=== PATIENT | female | born 1950 | race Caucasian/White ===

== ENCOUNTER → 2020-01-11 05:27 | Outpatient (CLI) | payer MEDICARE, OTHER, SELFPAY ==
[2019-12-30 14:24] VITALS: BMI 25.3
--- NOTE | 2020-01-11 05:27 | ECHOCS_ITS ---
Reason For Study: Arrhythmia Procedure This was a 2D Doppler, Color Flow transthoracic echocardiogram. Contrast injection was performed. Exam performed in department. Left Ventricle Normal LV size. The estimated ejection fraction is 30 %. Stage 1 diastolic dysfunction. There is moderate to severe global hypokinesis of the left ventricle. Right Ventricle Normal RV size. Normal systolic function. Atria Normal left atrium. Normal right atrium. Mitral Valve Normal mitral valve. Mild (1+) eccentric mitral valve insufficiency. Tricuspid Valve Normal tricuspid valve. Mild (1+) tricuspid valve insufficiency. Pulmonary artery systolic pressure is 36 mmHg. Aortic Valve Normal aortic valve. Trisinus/trileaflet aortic valve. Pulmonic Valve Normal pulmonic valve. Great Vessels Normal aortic root. The pulmonary artery is normal size. Normal inferior vena cava. Pericardium/Pleural No pericardial effusion. Medication Diluted definity 2ml given slow IV push to enhance endocardial definition. MMode/2D Measurements & Calculations LVIDd: 5.2 cm IVSd: 1.3 cm LA dimension: 3.4 cm LVIDs: 4.5 cm LVPWd: 1.1 cm FS: 14.0 % LAV(MOD-bp): 55.9 ml LVAd ap4: 38.8 cm2 SV(MOD-sp4): 43.6 ml LAV(MOD-bp) Indexed: 35.1 ml/m2 EDV(MOD-sp4): 157.2 ml LAV(MOD-sp2): 57.7 ml EDV(sp4-el): 158.8 ml LAV(MOD-sp4): 53.6 ml LVAs ap4: 30.9 cm2 ESV(MOD-sp4): 113.6 ml ESV(sp4-el): 116.3 ml EF(MOD-sp4): 27.7 % EF(sp4-el): 26.7 % SV(sp4-el): 42.4 ml LA A4 area: 18.1 cm2 RA A4 area: 9.9 cm2 Time Measurements MV dec time: 0.15 sec Doppler Measurements & Calculations MV E max sanford: 48.3 cm/sec Ao V2 max: 110.0 cm/sec LV V1 max: 76.6 cm/sec MV A max sanford: 92.9 cm/sec Ao max P.8 mmHg LV V1 max P.3 mmHg MV E/A: 0.52 PA V2 max: 69.5 cm/sec TR max sanford: 285.2 cm/sec TR max P.5 mmHg Interpretation Summary Normal LV size. The estimated ejection fraction is 30 %. Stage 1 diastolic dysfunction. Mild (1+) eccentric mitral valve insufficiency. Mild (1+) tricuspid valve insufficiency. Pulmonary artery systolic pressure is 36 mmHg. Contrast injection was performed. Ordering Physician: Jesus Melton Referring Physician: Cade Colon Performed By: José Miguel Stokes RCS
--- NOTE | 2020-01-11 09:52 | STRESSREP ---
Stress Test Report Pharmacologic myocardial perfusion stress test. 69-year-old lady with a history of abnormal EKG. Stress protocol: Resting EKG demonstrates normal sinus rhythm with a rate of 74 bpm and an incomplete left bundle branch block and T wave inversions noted in leads II, III and aVF V4 V5 and V6. 0.4 mg of regadenoson was infused per usual protocol followed by Intravenous saline flush injection continuous EKG monitoring was performed. The maximum heart rate was 96 bpm which was 62% of maximum predicted heart rate the maximum workload was 1 metabolic equivalent. At rest there were no ST or T wave changes noted to suggest abnormal flow reserve at peak infusion nonspecific ST-T wave changes were noted. The ST changes were noted which was suggestive of an incomplete left bundle branch block. Myocardial perfusion protocol. 11.8 mCi of technetium 99m sestamibi was injected at rest. 0.4 mg of regadenoson was infused per usual protocol. At peak infusion 32.1 mCi of technetium 99m sestamibi was injected stress images obtained stress and rest images were reconstructed and compared in the short axis vertical long horizontal long axis. Gated images were also obtained Perfusion SPECT analysis: Review of the stress images demonstrate a mildly dilated cardiac silhouette size. On the stress images the anterior septal wall to the apex appears to have reduced perfusion. The resting images demonstrate an improvement in perfusion suggesting anterior septal to apical ischemia. A previous infarct was not present. Gated SPECT analysis: The gated ejection fraction is noted to be 30%. Conclusion: 1. Cardiomyopathy. 2. Incomplete left bundle branch block. 3. Anterior septal to apical ischemia.
== END ==
PROVIDERS: PCP Family Medicine; Referring Provider Internal Medicine Cardiovascular Disease; Visit Provider Internal Medicine Cardiovascular Disease
DX: R94.31 Abnormal electrocardiogram [ECG] [EKG] (principal)
CPT/HCPCS: 78452; 93017; 93306; A9500; Q9957; A4216; C8929; J2785

== ENCOUNTER 2020-01-14 10:05 | Day surgery (SDC) | payer MEDICARE, OTHER, SELFPAY ==
[2019-12-30 14:24] VITALS: BMI 25.3
[2020-01-13 08:49] VITALS: BMI 25.3
--- NOTE | 2020-01-14 12:20 | CL.D_ITS ---
Patient Name: RENETTA WAITE Study Date: 01/14/2020 Performing: Jesus Melton MD Ht: 61.02 inches 155 cm : 1950 Wt: 134.48 lbs 61 kg Age: 69 Gender: female BSA: 1.6 PROCEDURE(S) PERFORMED BM27-DAO/COR/LV CLINICAL PROFILE AND INDICATIONS Heart Failure: None Stress/Imaging Date: 01/02/2020 CONCLUSIONS Normal coronary arteries Cardiomyopathy: Non-ischemic RECOMMENDATIONS Medical therapy Will startACE inhibitor and proceed with knee surgery DESCRIPTION OF PROCEDURE The patient arrived to the procedure lab. The risks and benefits of the procedure as well as a full d escription of our services here and current unavailability of surgical backup were fully explained to the patient and/or their significant other prior to the catheterization. The Timeout was completed, verifying the correct patient and procedure. The patient's procedural site was prepped and draped in the usual fashion. Local anesthetic was given subcutaneously to right radial region with Lidocaine 2% . Using a modified Seldinger technique, arterial access was obtained via the right radial artery, a 6 Fr sheath was inserted. Left Coronary Artery selective angiography was performed in multiple views u sing a 5 Fr. 4.0 [place] catheter. Right Coronary Artery selective angiography was then performed in mu ltiple views using a 5 Fr. 4.0 [place] catheter. Left Ventriculography was performed in V[place] projection using a 5 Fr. [place] catheter. LV to AO pullback pressures were then recorded.The arterial sheath was pulled and a TR Band was applied for hemostasis w/ 12ml air CORONARY ANGIOGRAPHY DOMINANCE: Right Dominant LEFT HEART ASSESSMENT Left Ventricular Ejection Fraction: by LV Gram 35 % Global Hypokinesis - Moderate Depressed Left Ventricular systolic function LEFT MAIN: Angiographically normal LEFT ANTERIOR DESCENDING ARTERY: Angiographically normal CIRCUMFLEX ARTERY: Angiographically normal RIGHT CORONARY ARTERY: Angiographically normal COMPLICATIONS No Complications PROCEDURE MEDICATIONS Versed 1 mg IV Fentanyl 50 mcg IV Versed 1 mg IV Baby Aspirin (81mg) 1 Tabs PO @ 01/14/2020 10:44:25 SUMMARY OF HEMODYNAMIC DATA Time AIR REST ECG 10:45:49 AO 143/82 (108) SA 11:21:39 LV 136/14, 22 11:46:10 LV 137/17, 24 11:46:16 LV 135/14, 21 11:47:22 LVp 134/18, 24 11:47:27 AO 143/85 (111) 11:47:32 Signed By Jesus Melton MD On 01/14/2020 12:18:52 Jesus Melton MD
== END 2020-01-14 13:25 | disposition home or self-care (01) ==
LOC: CLSP 10:05
PROVIDERS: PCP Family Medicine; Referring Provider Internal Medicine Cardiovascular Disease; Visit Provider Internal Medicine Cardiovascular Disease
DX: Z01.810 Encounter for preprocedural cardiovascular examination (principal); R94.31 Abnormal electrocardiogram [ECG] [EKG]; M19.90 Unspecified osteoarthritis, unspecified site; I44.7 Left bundle-branch block, unspecified; G20 Parkinson's disease; E78.5 Hyperlipidemia, unspecified; G47.33 Obstructive sleep apnea (adult) (pediatric); M81.0 Age-related osteoporosis without current pathological fracture; F32.9 Major depressive disorder, single episode, unspecified; Z79.82 Long term (current) use of aspirin; Z79.899 Other long term (current) drug therapy
CPT/HCPCS: 93458; 99152; 99153; J7040; Q9967; C1769; C1894

== ENCOUNTER → 2020-11-08 10:48 | Outpatient (CLI) | payer MEDICARE, OTHER, SELFPAY ==
[2020-10-31 10:39] VITALS: BMI 23.0
--- NOTE | 2020-11-08 10:51 | ECHOD_ITS ---
Reason For Study: CHF Procedure This was a 2D Doppler, Color Flow transthoracic echocardiogram. Exam performed in department. Left Ventricle Normal LV size. The estimated ejection fraction is 35 %. Stage 1 diastolic dysfunction. There is moderate global hypokinesis of the left ventricle. Right Ventricle Normal RV size. Mitral Valve Mild mitral valve prolapse. Tricuspid Valve Normal tricuspid valve. Mild (1+) tricuspid valve insufficiency. Pulmonary artery systolic pressure is 28 mmHg. Pericardium/Pleural No pericardial effusion. MMode/2D Measurements & Calculations LVIDd: 5.4 cm IVSd: 1.0 cm Ao root diam: 3.2 cm LVIDs: 4.3 cm LVPWd: 1.0 cm RVDd: 2.5 cm FS: 18.9 % LAV(MOD-bp): 35.2 ml LVAd ap4: 25.5 cm2 LVAd ap2: 28.7 cm2 LAV(MOD-bp) Indexed: 23.3 ml/m2 LVLd ap4: 7.1 cm LVLd ap2: 7.6 cm LAV(MOD-sp2): 34.2 ml EDV(MOD-sp4): 79.2 ml EDV(MOD-sp2): 90.8 ml LAV(MOD-sp4): 33.3 ml EDV(sp4-el): 77.5 ml EDV(sp2-el): 91.7 ml LVAs ap4: 19.5 cm2 LVAs ap2: 19.6 cm2 LVLs ap4: 6.2 cm LVLs ap2: 6.8 cm ESV(MOD-sp4): 52.0 ml ESV(MOD-sp2): 50.8 ml ESV(sp4-el): 51.9 ml ESV(sp2-el): 48.4 ml EF(MOD-sp4): 34.4 % EF(MOD-sp2): 44.1 % EF(sp4-el): 33.0 % SV(MOD-sp4): 27.2 ml SV(MOD-sp2): 40.0 ml SV(sp4-el): 25.6 ml LA A4 area: 14.1 cm2 LA dimension(2D): 3.8 cm RA A4 area: 12.3 cm2 Time Measurements MV dec time: 0.29 sec Doppler Measurements & Calculations MV E max henrik: 48.6 cm/sec Lat Peak E' Henrik: 5.4 cm/sec Med Peak E' Henrik: 3.8 cm/sec MV A max henrik: 78.4 cm/sec E/E' lat: 9.1 E/E' med: 12.8 MV E/A: 0.62 Ao V2 max: 102.0 cm/sec LV V1 max: 67.7 cm/sec PA V2 max: 78.6 cm/sec Ao max P.2 mmHg LV V1 max P.8 mmHg TR max henrik: 242.0 cm/sec TR max P.4 mmHg ECHO/Echo Complete Interpretation Summary Normal LV size. The estimated ejection fraction is 35 %. There is moderate global hypokinesis of the left ventricle. Stage 1 diastolic dysfunction. Mild mitral valve prolapse. Compared to previous study, the left ventricular systolic function has improved .. Ordering Physician: Lea Lala Referring Physician: Cade Colon Performed By: Medina Pena, JAQUELINE, RVT
== END ==
PROVIDERS: PCP Family Medicine; Referring Provider Physician Assistant Medical; Visit Provider Physician Assistant Medical
DX: I42.8 Other cardiomyopathies (principal); I50.9 Heart failure, unspecified
CPT/HCPCS: 93306

== ENCOUNTER → 2023-12-03 | Outpatient (CLI) | payer MEDICARE, OTHER, SELFPAY ==
[2023-12-03 10:02] LABS: Absolute Lymphocyte Count 2.07 X10^3/uL (0.83-4.51); Absolute Neutrophil Count 2.8 X10^3/uL (2.0-7.7); Basophil# 0.04 X10^3/uL; Basophil% 0.7 % (0-1); Eosinophil# 0.06 X10^3/uL; Eosinophils% 1.1 % (0-5); Hematocrit 31.6 % (37-47); Hemoglobin 9.9 g/dL (12.0-15.0); Lymphocyte # 2.07 X10^3/ul (0.83-4.51); Lymphocyte % 38.4 % (19-41); Mean Corp Hgb Conc 31.3 g/dL (32-36); Mean Corpuscular Hgb 30.1 pg (27.0-32.0); Mean Platelet Vol. 10.2 fl (6.2-12.0); Monocyte# 0.44 X10^3/uL; Monocyte% 8.2 % (0-10); NRBC Flagged by Analyzer 0 % (0-5); Neutrophil # 2.77 X10^3/uL (2.7-7.7); Neutrophil % 51.4 % (47-70); Platelet Count 234 K/mm3 (150-450); RBC Distribution Width CV 16.3 % (11.6-14.6); RBC Distribution Width SD 51.6 fl (35.1-43.9); Red Blood Count 3.29 M/mm3 (4.2-5.4); White Blood Count 5.4 K/mm3 (4.4-11.0)
[2023-12-03 10:10] LABS: ALB/GLOB Ratio 1.2 RATIO (0.9-2.4); AST(SGOT) 11 U/L (15-37); Alanine Aminotransfer ALT/SGPT < 6 U/L (13-56); Albumin, Serum 3.4 g/dL (3.2-5.0); Alkaline Phosphatase 68 U/L (45-117); Anion Gap 5 (5-15); BUN 29 mg/dL (7-18); BUN/Creat Ratio 53.8 RATIO (10-20); Calcium,Total 8.9 mg/dL (8.5-10.1); Chloride 108 mmol/L (98-107); Creatinine, Serum 0.54 mg/dL (0.55-1.02); EST Glomerular Filtration Rate 118 mL/min (>60); Est Glom Filt Rate - Afr Amer 143 mL/min (>60); Globulin 2.8 g/dL (2.2-4.2); Glucose 105 mg/dL (74-106); Potassium 3.7 mmol/L (3.5-5.1); Protein, Total 6.2 g/dL (6.4-8.2); Sodium Level 141 mmol/L (136-145)
== END | disposition home or self-care (01) ==
LOC: LAB 09:09
PROVIDERS: PCP Internal Medicine; Visit Provider Physician Assistant Medical
DX: I42.8 Other cardiomyopathies (principal); R53.83 Other fatigue; R53.1 Weakness; I10 Essential (primary) hypertension; E78.5 Hyperlipidemia, unspecified; I44.7 Left bundle-branch block, unspecified
CPT/HCPCS: 36415; 80053; 83735; 85025

== ENCOUNTER → 2024-10-15 | Outpatient (CLI) | payer MEDICARE, OTHER, SELFPAY ==
--- NOTE | 2024-10-15 09:37 | ECHOD_ITS ---
Reason For Study Reason For Study: CARDIOMYOPATHY Procedure This was a 2D Doppler, Color Flow transthoracic echocardiogram. The study was technically difficult. Due to constant motion (PARKINSON'S DZ). Exam performed in department. Left Ventricle Normal LV size. The left ventricular ejection fraction is 40 %. No regional wall motion abnormalities noted. Right Ventricle Normal RV size. Normal systolic function. Atria Normal left atrium. Normal right atrium. Mitral Valve Bileaflet diffuse mitral valve thickening. Tricuspid Valve Normal tricuspid valve. Mild (1+) tricuspid valve insufficiency. Pulmonary artery systolic pressure is 20 mmHg. Aortic Valve Trisinus/trileaflet aortic valve. Mild focal aortic valve thickening. Pulmonic Valve Normal pulmonic valve. Great Vessels Normal aortic root. The pulmonary artery is normal size. Inferior vena cava collapse with respiration. Pericardium/Pleural No pericardial effusion. MMode/2D Measurements & Calculations LVIDd: 4.9 cm IVSd: 0.75 cm LAV(MOD- bp): 58.2 ml LVIDs: 3.7 cm LVPWd: 0.99 cm LAV(MOD- bp) Indexed: 40.2 ml/m2 RVDd: 2.5 cm FS: 25.6 % LAV(MOD- sp2): 56.6 ml LAV(MOD- sp4): 50.6 ml SV(MOD- sp4): 32.3 ml LVAd ap4: 28.2 cm2 LVAd ap2: 21.3 cm2 LVLd ap4: 7.6 cm LVLd ap2: 7.0 cm SI(MOD- sp4): 22.3 ml/m2 EDV(MOD-sp4): 90.7 ml EDV(MOD-sp2): 56.9 ml EDV(sp4-el): 89.6 ml EDV(sp2-el): 55.5 ml LVAs ap4: 21.2 cm2 LVAs ap2: 15.8 cm2 LVLs ap4: 6.6 cm LVLs ap2: 6.0 cm ESV(MOD-sp4): 58.4 ml ESV(MOD-sp2): 36.8 ml ESV(sp4-el): 58.3 ml ESV(sp2-el): 35.3 ml EF(MOD-sp4): 35.6 % EF(MOD-sp2): 35.2 % EF(sp4-el): 35.0 % SV(MOD-sp2): 20.0 ml SV(sp4-el): 31.4 ml LA A4 area: 16.4 cm2 SI(MOD-sp2): 13.8 ml/m2 TAPSE: 1.8 cm RA A4 area: 11.7 cm2 Time Measurements MV dec time: 0.23 sec Doppler Measurements & Calculations MV E max henrik: 50.7 cm/sec Lat Peak E' Henrik: 4.8 cm/sec Med Peak E' Henrik: 5.1 cm/sec MV A max henrik: 83.5 cm/sec E/E' lat: 10.5 E/E' med: 10.0 MV E/A: 0.61 MV V2 max: 94.4 cm/sec MV P1/2t max henrik: 51.8 cm/sec Ao V2 max: 110.6 cm/sec MV max P.6 mmHg MV P1/2t: 63.7 msec Ao max P.9 mmHg MV V2 mean: 49.7 cm/sec MV dec slope: 238.0 cm/sec2 Ao V2 mean: 71.6 cm/sec MV mean P.2 mmHg Ao mean P.3 mmHg MV V2 VTI: 18.1 cm MVA(P1/2t): 3.5 cm2 Ao V2 VTI: 20.2 cm AV (velocity ratio): 0.64 LV V1 max: 66.6 cm/sec PA V2 max: 88.8 cm/sec TR max henrik: 206.2 cm/sec LV V1 max P.8 mmHg PA V2 mean: 58.4 cm/sec TR max P.0 mmHg LV V1 mean P.96 mmHg LV V1 mean: 45.7 cm/sec LV V1 VTI: 12.9 cm ECHO/Echo Complete Interpretation Summary Normal LV size. The left ventricular ejection fraction is 40 %. Bileaflet diffuse mitral valve thickening. Pulmonary artery systolic pressure is 20 mmHg. Compared to previous study, the left ventricular systolic function is the same. . Ordering Physician: Jesus Melton Referring Physician: Darlyn Grijalva Performed By: Medina Pena, JAQUELINE, RVT
== END | disposition home or self-care (01) ==
LOC: CVS 09:37
PROVIDERS: PCP Student in an Organized Health Care Education/Training Program; Referring Provider Internal Medicine Cardiovascular Disease; Visit Provider Internal Medicine Cardiovascular Disease
DX: I42.8 Other cardiomyopathies (principal)
CPT/HCPCS: 93306

== ENCOUNTER → 2025-02-02 | Outpatient (CLI) | payer MEDICARE, OTHER, SELFPAY ==
[2025-02-02 10:18] LABS: Hematocrit 43.2 % (37-47); Hemoglobin 14.1 g/dL (12.0-15.0); Immature Granulocytes Count 0.000 X10^3/uL (0.0-0.0); Mean Corp Hgb Conc 32.6 g/dL (32-36); Mean Corpuscular Volume 97.3 fL (81-99); Mean Platelet Vol. 9.8 fl (6.2-12.0); NRBC Flagged by Analyzer 0 % (0-5); Platelet Count 235 K/mm3 (150-450); RBC Distribution Width CV 12.9 % (11.6-14.6); RBC Distribution Width SD 46.5 fl (35.1-43.9); Red Blood Count 4.44 M/mm3 (4.2-5.4); White Blood Count 5.4 K/mm3 (4.4-11.0)
[2025-02-02 11:30] LABS: Anion Gap 9 (5-15); BUN 16 mg/dL (4-19); BUN/Creat Ratio 28.5 RATIO (10-20); Calcium,Total 8.9 mg/dL (7.6-11.0); Carbon Dioxide 26.3 mmol/L (21.0-32.0); Chloride 106 mmol/L (98-108); Glucose 98 mg/dL (70-99); Potassium 4.0 mmol/L (3.3-5.1); Pro- Brain NATRIURETIC PEPTIDE 400 pg/mL (<=900)
== END | disposition home or self-care (01) ==
PROVIDERS: PCP Student in an Organized Health Care Education/Training Program; Referring Provider Nurse Practitioner Gerontology; Visit Provider Nurse Practitioner Gerontology
DX: R06.02 Shortness of breath (principal); I42.8 Other cardiomyopathies; M79.89 Other specified soft tissue disorders
CPT/HCPCS: 36415; 80048; 83880; 85025